=== PATIENT | male | born 1985 | race African-American/Black ===

== ENCOUNTER 2018-02-07 14:09 | Inpatient (IN) | payer MEDICAID ==
[~2018-02-07] VITALS: Ht 177.8 cm; Wt 70.3 kg
[2018-02-07] MEDS ORDERED: AMYL1CAP56 PO (14:28)
[2018-02-07] MEDS ORDERED: QUET300T2 PO (14:28)
[2018-02-07] MEDS ORDERED: INSU3INS6 SQ (14:28)
[2018-02-07] MEDS ORDERED: HUMALOG SQ (14:28)
[2018-02-07] MEDS ORDERED: ZOLP10TA2 PO (14:28)
[2018-02-07] MEDS ORDERED: MORPHINE SULFATE 2 MG/1 ML DISP.SYRIN IV ONE ×2 (14:45→17:15)
[2018-02-07] MEDS ORDERED: ONDANSETRON 4 MG/2 ML VIAL IV ONE ×2 (14:45→17:15)
[2018-02-07] MEDS ORDERED: IV NORMAL SALINE 1000 ML BAG IV ONE ×2 (14:45→17:15)
[2018-02-07 15:36] LABS: *BLOOD, URINE Trace-intact (NEGATIVE); *CLARITY,URINE SLIGHTLY CLOUDY (CLEAR); *COLOR,URINE DARK YELLOW (YELLOW); *KETONES,URINE TRACE (NEGATIVE); *UROBILINOGEN,URINE 0.2 E.U./dl (NORMAL); LEUKOCYTE ESTERASE ,URINE NEGATIVE (NEGATIVE); NITRITE, URINE NEGATIVE (NEGATIVE); UGLUCOSE TRACE (NEGATIVE)
[2018-02-07 15:38] LABS: *BILIRUBIN,URIN 1+ (NEGATIVE)
[2018-02-07 15:51] LABS: BACTERIA,URINE NONE SEEN /HPF (NONE SEEN); CALCIUM OXALATE CRYSTALS,UR FEW /HPF (NONE SEEN); SQUAMOUS EPITHELIAL CELL,UR FEW /HPF (NONE SEEN); WBC,URINE 0-3 /HPF (0-3)
--- NOTE | 2018-02-07 16:10 | NUR ---
Md placed triple lumen centeral line in Rt Jugular vein, pt tolorated well.
[2018-02-07] MEDS ORDERED: MORPHINE SULFATE 4 MG/1 ML DISP.SYRIN ONE ×2 (16:16→17:22)
[2018-02-07] MEDS ORDERED: ONDANSETRON 4 MG/2 ML VIAL ONE ×2 (16:16→17:22)
[2018-02-07 16:17] LABS: BASOPHILS # (AUTO) 0.1 K/uL (0.0-8.0); EOSINOPHILS # (AUTO) 0.1 K/uL (0.0-0.7); EOSINOPHILS % (AUTO) 1.8 % (0.0-7.0); HEMATOCRIT 27.6 % (36.7-47.1); HEMOGLOBIN 9.2 g/dL (12.5-16.3); LYMPHOCYTES # (AUTO) 1.8 K/uL (20.0-40.0); LYMPHOCYTES % (AUTO) 31.7 % (20.5-51.5); MEAN CORPUSCULAR HEMOGLOBIN 25.8 uug (23.8-33.4); MEAN CORPUSCULAR HGB CONC 33 g/dL (32.5-36.3); MEAN CORPUSCULAR VOLUME 77.7 fL (73.0-96.2); MONOCYTES # (AUTO) 0.5 K/uL (2.0-10.0); MONOCYTES % (AUTO) 7.9 % (0.0-11.0); NEUTROPHILS # (AUTO) 3.3 K/uL (1.8-8.9); NEUTROPHILS % (AUTO) 57.6 % (38.5-71.5); PLATELET COUNT (AUTO) 589 K/uL (152-348); RED BLOOD CELL COUNT(AUTO) 3.56 MIL/uL (4.06-5.63); WHITE BLOOD COUNT (AUTO) 5.8 K/uL (3.6-10.2)
[2018-02-07 16:40] LABS: ALANINE AMINOTRANSFERASE 21 U/L (16-63); ALKALINE PHOSPHATASE 109 U/L (50-136); ASPARTATE AMINOTRANSFERASE 16 U/L (15-37); BILIRUBIN,DIRECT 0.1 mg/dL (0.0-0.2); BILIRUBIN,TOTAL 0.3 mg/dL (0.2-1.0); CARBON DIOXIDE 29 mmol/L (21-32); CHLORIDE 101 mmol/L (98-107); CREATININE 0.6 mg/dL (0.6-1.3); GLUCOSE 114 mg/dL (74-106); LIPASE 44 U/L (73-393); POTASSIUM 3.8 mmol/L (3.5-5.1); UREA NITROGEN, BLOOD 8 mg/dL (7-18)
--- NOTE | 2018-02-07 16:59 | NUR ---
OSIEL DALTON spoke to Dr Corea for admit. Pt [place] be admitted to M/S.
[2018-02-07] MEDS ORDERED: VANCOMYCIN IV 1 G in PREMIXED 0 EACH IV SCH (17:15)
[2018-02-07] MEDS ORDERED: MORPHINE SULFATE 2 MG/1 ML DISP.SYRIN IV PRN (17:15)
[2018-02-07] MEDS ORDERED: DEXTROSE 50% 50 ML DISP.SYRIN IV PRN (17:15)
--- NOTE | 2018-02-07 17:40 | NUR ---
patient transferred to [facility]-surg from ER. patient is in stable condition. central line is intact and flushing well. patient denies any pain or discomfort at this time.
[2018-02-07 17:49] VITALS: BP 143/95
[2018-02-07] MEDS: BLOOD SUGAR DIAGNOSTIC 1 EACH STRIP VI SCH (18:30)
--- NOTE | 2018-02-07 18:33 | NUR ---
PHARMACY CLINICAL NOTES ( VANCOMYCIN DOSING) S: Patient is a 32-year-old male with history of diabetes, chronic pancreatitis status post cholecystectomy, splenectomy and partial pancreatectomy reported to emergency department complaining of increasing abdominal pain and recurrent vomiting for the last couple days. MD ordered Vancomycin for suspected infection O: BUN/SCR 8/0.6; WBC 5.8; T MAX 98; DOSING WT 155LBS; PT has allergy to (zosyn, PCN) A/P: Will dose Vancomycin as 1 gm q7h ; predicted peak of 36 and trough 18, will order trough prior to 4th dose tomorrow ~ 1600 and will adjust the dose if necessary.
[2018-02-07] MEDS: IV NS 1000 ML 1,000 ML IV PRN (19:01)
[2018-02-07] MEDS: INSULIN REGULAR, HUMAN 300 UNIT/3 ML VIAL SQ PRN (19:07)
--- NOTE | 2018-02-07 19:20 | NUR ---
RECEIVED PT AWAKE, ALERT, AND ORIENTEDX4.PT SHOWS NO SIGNS OF ACUTE DISTRESS. IV INTACT AND PATENT. VITAL SIGNS WNL. SAFETY AND COMFORT PROVIDED. WILL CONTINUE TO MONITOR. PT REQUESTING FOR DILAUDID MEDICATION BECAUSE HE CLAIMS MORPHINE DOESN'T HELPED HIM AND ASKING FOR PAIN MEDICATION. WILL CONTINUE TO MONITOR.
[2018-02-07] MEDS: VANCOMYCIN IV 1 G in PREMIXED 0 EACH IV SCH (19:52)
[2018-02-07 20:00] VITALS: BP 127/80
--- NOTE | 2018-02-07 20:38 | NUR ---
CALLED DR TOOL SHAPER SETUP OPERATOR FOR THE PATIENT REQUESTING IF HE CAN GET DILAUDID AND SLEEPING MEDICATION. DR. IDALMIS SALAZAR CALLED BACK AND ORDERED TO HAVE THE SAME PAIN MEDICATION WHICH IS MORPHINE AND NO SLEEPING MEDICATION BECAUSE PT IS ON NPO. PT STABLE. WILL CONTINUE TO MONITOR.
[2018-02-07] MEDS: MORPHINE SULFATE 4 MG/1 ML DISP.SYRIN IV PRN (21:48)
[2018-02-08] MEDS: BLOOD SUGAR DIAGNOSTIC 1 EACH STRIP VI SCH ×5 (00:21→23:25)
[2018-02-08] MEDS: INSULIN REGULAR, HUMAN 300 UNIT/3 ML VIAL SQ PRN ×3 (00:24→23:30)
--- NOTE | 2018-02-08 01:00 | NUR ---
ORDERED SOCIAL SERVICE FOR THE CODE OF THE PT TO HAVE POLST . PT STABLE. WILL CONTINUE TO MONITOR.
[2018-02-08] MEDS: VANCOMYCIN IV 1 G in PREMIXED 0 EACH IV SCH ×2 (01:57→08:29)
[2018-02-08] MEDS: MORPHINE SULFATE 4 MG/1 ML DISP.SYRIN IV PRN ×5 (01:58→21:55)
[2018-02-08 04:00] VITALS: BP 123/82
[2018-02-08] MEDS: IV NS 1000 ML 1,000 ML IV PRN ×2 (06:31→18:17)
--- NOTE | 2018-02-08 06:41 | NUR ---
PT SLEPT THROUGHOUT THE SHIFT. PT SHOWS NO SIGNS OF DISTRESS. PRESCRIBED MEDICATION GIVEN AND PT TOLERATED IT WELL. CALL LIGHT WITHIN REACH. IV INTACT.PAIN MANAGEMENT DONE. PAIN MEDICATION GIVEN AND PT TOLERATED IT WELL. SAFETY AND COMFORT PROVIDED. WILL ENDORSE TO DAYSHIFT NURSE FOR CONTINUITY OF CARE.
[2018-02-08 06:42] LABS: BASOPHILS # (AUTO) 0.1 K/uL (0.0-8.0); BASOPHILS % (AUTO) 1.5 % (0.0-2.0); EOSINOPHILS # (AUTO) 0.3 K/uL (0.0-0.7); EOSINOPHILS % (AUTO) 6.3 % (0.0-7.0); HEMATOCRIT 24.7 % (36.7-47.1); HEMOGLOBIN 8.3 g/dL (12.5-16.3); LYMPHOCYTES % (AUTO) 40.6 % (20.5-51.5); MEAN CORPUSCULAR HEMOGLOBIN 26.5 uug (23.8-33.4); MEAN CORPUSCULAR HGB CONC 34 g/dL (32.5-36.3); MEAN CORPUSCULAR VOLUME 78.7 fL (73.0-96.2); MONOCYTES # (AUTO) 0.5 K/uL (2.0-10.0); MONOCYTES % (AUTO) 9.7 % (0.0-11.0); NEUTROPHILS # (AUTO) 2.1 K/uL (1.8-8.9); NEUTROPHILS % (AUTO) 41.9 % (38.5-71.5); PLATELET COUNT (AUTO) 595 K/uL (152-348); RED BLOOD CELL COUNT(AUTO) 3.13 MIL/uL (4.06-5.63); WHITE BLOOD COUNT (AUTO) 4.9 K/uL (3.6-10.2)
[2018-02-08 06:55] LABS: THYROID STIMULATING HORMONE 5.594 mIU/mL (0.358-3.740)
[2018-02-08 06:56] LABS: ALANINE AMINOTRANSFERASE 18 U/L (16-63); ALKALINE PHOSPHATASE 97 U/L (50-136); ASPARTATE AMINOTRANSFERASE 17 U/L (15-37); BILIRUBIN,TOTAL 0.2 mg/dL (0.2-1.0); CARBON DIOXIDE 28 mmol/L (21-32); CHLORIDE 104 mmol/L (98-107); CHOLESTEROL 82 mg/dL (<200); CREATININE 0.6 mg/dL (0.6-1.3); GLUCOSE 220 mg/dL (74-106); HDL CHOLESTEROL 29 mg/dL (40-60); MAGNESIUM 1.8 mg/dL (1.8-2.4); PHOSPHOROUS 3.1 mg/dL (2.5-4.9); POTASSIUM 3.8 mmol/L (3.5-5.1); TOTAL PROTEIN, SERUM 6.7 g/dL (6.4-8.2); TRIGLYCERIDES 37 MG/DL (30-150); UREA NITROGEN, BLOOD 6 mg/dL (7-18)
[2018-02-08 07:02] LABS: LIPASE 41 U/L (73-393)
[2018-02-08] MEDS: PANTOPRAZOLE SODIUM 40 MG VIAL IV SCH (08:27)
--- NOTE | 2018-02-08 10:01 | NUR ---
UPON ASSESSMENT, PATIENT DENIES ANY SUICIDAL IDEATION AT THIS TIME. APN CONSULT HAS BEEN PLACED. WILL CONTINUE TO MONITOR CLOSELY.
[2018-02-08 12:00] VITALS: BP 116/64
[2018-02-08] MEDS ORDERED: BARIUM SULFATE 450 ML ORAL.SUSP ONE (13:26)
[2018-02-08] MEDS ORDERED: IOHEXOL 300MG/ML 100 ML INFUS..BTL ONE (15:35)
[2018-02-08] MEDS ORDERED: NORMAL SALINE FLUSH 10 ML DISP.SYRIN ONE (15:35)
[2018-02-08] MEDS ORDERED: IV NORMAL SALINE 250 ML IV ONE (15:35)
[2018-02-08] MEDS ORDERED: SWABABLE VALVE TRANSFER SET EA MC ONE (15:35)
[2018-02-08 16:00] VITALS: BP 121/70
--- NOTE | 2018-02-08 18:44 | NUR ---
patient is resting in bed and was resting through out most of the day. patient continue to complain of abdominal pain, but morphine pain management seems to be effective. patient went down to do CT of the abdomen today and signed a consent. Went down with patient and did not notice any distress. patient denies any distress while being transferred and doing procedure. patient is able to verbalize needs. patient remains in stable condition and denies any suicidal ideation at this time. will continue to follow up with social media specialist for POLST status. will endorse to compliance program manager nurse the continuity of care.
[2018-02-08 19:00] VITALS: BP 127/75
--- NOTE | 2018-02-08 19:15 | NUR ---
Received pt sitting up in bed, awake. Alert and oriented x4. Discussed and reviewed plan of care with pt, pt cooperative but is guarded and passive. Pt has pain level of 7/10 on pain scale. Pt denies SI. IV intact, clean and dry. Aware of follow up consult with socially responsible investment adviser for POLST status. Safety precautions and comfort measures implemented. Call light within reach. Will continue to monitor and carry out all orders.
[2018-02-08] MEDS: ONDANSETRON 4 MG/2 ML VIAL IV PRN (21:38)
--- NOTE | 2018-02-08 22:59 | NUR ---
Upon initial rounds, pt stated he was nauseous and had an episode of vomiting. Emesis was present, 50 mL with clear color with no other particles. Zofran was given prior to emesis episode. Will continue to monitor.
--- NOTE | 2018-02-09 | NUR ---
Pt stated that he feels better. No nausea or emesis noted. Comfort measures maintained. Will continue to monitor.
[2018-02-09] MEDS: MORPHINE SULFATE 4 MG/1 ML DISP.SYRIN IV PRN ×2 (03:02→08:33)
[2018-02-09 04:00] VITALS: BP 106/66
[2018-02-09] MEDS: BLOOD SUGAR DIAGNOSTIC 1 EACH STRIP VI SCH ×5 (05:02→20:10)
[2018-02-09] MEDS: IV NS 1000 ML 1,000 ML IV PRN ×2 (05:03→15:15)
--- NOTE | 2018-02-09 05:20 | NUR ---
BG check in AM, results of 132. Pt refused insulin. Will endorse to day shift nurse and continue to monitor.
[2018-02-09 06:47] LABS: ALANINE AMINOTRANSFERASE 19 U/L (16-63); ALKALINE PHOSPHATASE 102 U/L (50-136); ASPARTATE AMINOTRANSFERASE 27 U/L (15-37); BASOPHILS # (AUTO) 0.1 K/uL (0.0-8.0); BASOPHILS % (AUTO) 1.3 % (0.0-2.0); BILIRUBIN,TOTAL 0.4 mg/dL (0.2-1.0); CARBON DIOXIDE 28 mmol/L (21-32); CHLORIDE 105 mmol/L (98-107); CREATININE 0.6 mg/dL (0.6-1.3); EOSINOPHILS # (AUTO) 0.3 K/uL (0.0-0.7); EOSINOPHILS % (AUTO) 6.4 % (0.0-7.0); GLUCOSE 140 mg/dL (74-106); HEMATOCRIT 25.7 % (36.7-47.1); HEMOGLOBIN 8.7 g/dL (12.5-16.3); LIPASE 32 U/L (73-393); LYMPHOCYTES # (AUTO) 1.9 K/uL (20.0-40.0); LYMPHOCYTES % (AUTO) 42.5 % (20.5-51.5); MAGNESIUM 1.8 mg/dL (1.8-2.4); MEAN CORPUSCULAR HEMOGLOBIN 26.5 uug (23.8-33.4); MEAN CORPUSCULAR HGB CONC 34 g/dL (32.5-36.3); MEAN CORPUSCULAR VOLUME 78.8 fL (73.0-96.2); MONOCYTES # (AUTO) 0.4 K/uL (2.0-10.0); MONOCYTES % (AUTO) 9.8 % (0.0-11.0); NEUTROPHILS # (AUTO) 1.8 K/uL (1.8-8.9); PHOSPHOROUS 3.1 mg/dL (2.5-4.9); PLATELET COUNT (AUTO) 637 K/uL (152-348); POTASSIUM 3.5 mmol/L (3.5-5.1); RED BLOOD CELL COUNT(AUTO) 3.27 MIL/uL (4.06-5.63); TOTAL PROTEIN, SERUM 6.4 g/dL (6.4-8.2); WHITE BLOOD COUNT (AUTO) 4.5 K/uL (3.6-10.2)
[2018-02-09 06:56] LABS: UREA NITROGEN, BLOOD 5 mg/dL (7-18)
--- NOTE | 2018-02-09 07:40 | NUR ---
Received patient asleep in low back rest. Alert and oriented x4. Not in any form of distress. Pt denies SI. Noted with right IJ cath with dressing, intact to IVF infusing well. Noted for follow up consult with social work coordinator for POLST status. Maintained on NPO for CT of the abdomen. Noted complains of abdominal pain, prn pain medications given. Bed in low position, side rails up x2 for safety, call light within reach. Ensured safety and comfort. Will continue to monitor.
[2018-02-09] MEDS: PANTOPRAZOLE SODIUM 40 MG VIAL IV SCH ×2 (08:33→20:05)
[2018-02-09] MEDS ORDERED: PANTOPRAZOLE SODIUM 40 MG VIAL IV SCH (11:00)
[2018-02-09 11:10] VITALS: BP 111/67
[2018-02-09] MEDS: SUCRALFATE 1 G TABLET PO SCH ×3 (11:26→20:05)
[2018-02-09] MEDS: ONDANSETRON 4 MG/2 ML VIAL IV PRN (11:27)
[2018-02-09] MEDS: INSULIN REGULAR, HUMAN 300 UNIT/3 ML VIAL SQ PRN ×3 (11:41→20:11)
[2018-02-09] MEDS: HYDROMORPHONE 1 MG/1 ML DISP.SYRIN IV PRN ×4 (12:14→21:22)
--- NOTE | 2018-02-09 13:00 | NUR ---
Per chart review, CT of abdomen was done and resulted yesterday. Verified with Bill Silva, no need to redo the scan and that patient can eat regular diet - ordered.
--- NOTE | 2018-02-09 13:30 | NUR ---
Security Flex Utility Officer, tablet tester patient should be on low fat diet because of pancreatitis diagnosis, updated patient's diet.
--- NOTE | 2018-02-09 14:00 | NUR ---
Patient repeatedly asking for snacks and requesting to get chips and soda from vending machine, patient informed that while he is admitted in the hospital he should follow the diet that is recommended for him by the doctor and dietitian.
[2018-02-09 15:04] VITALS: BP 123/76
--- NOTE | 2018-02-09 18:15 | NUR ---
Patient awake in low back rest. Alert and oriented x4. Not in any form of distress. Pt denies SI. Noted with right IJ cath with dressing, intact to IVF infusing well. Noted complains of abdominal pain, prn pain medications given. Bed in low position, side rails up x2 for safety, call light within reach. Ensured safety and comfort. Noted per Bill Silva BENCH ASSEMBLER OPERATOR, discharge planning tomorrow.
--- NOTE | 2018-02-09 19:20 | NUR ---
Received patient lying in bed. AAOX4. In no acute distress. Denies any pain or SOB at this time. No nausea or vomiting reported. Right IJ site intact and patent. IVF infusing. Needs assessed and attended to. Safety measure initiated and call mckinney within reach.
[2018-02-09 20:00] VITALS: BP 142/83
[2018-02-10] MEDS: HYDROMORPHONE 1 MG/1 ML DISP.SYRIN IV PRN ×4 (00:22→09:36)
[2018-02-10] MEDS: IV NS 1000 ML 1,000 ML IV PRN (01:24)
[2018-02-10 05:02] VITALS: BP 113/59
--- NOTE | 2018-02-10 06:08 | NUR ---
AAOX4. In no acute distress. Denies SOB. No nausea or vomiting. Dilaudid PRN per order given for complain of abdominal pain and effective. Right IJ site intact and patent. IVF infusing. Needs assessed and attended to. Safety measure maintained and call mckinney within reach.
[2018-02-10] MEDS: SUCRALFATE 1 G TABLET PO SCH (06:45)
[2018-02-10] MEDS: BLOOD SUGAR DIAGNOSTIC 1 EACH STRIP VI SCH (06:46)
--- NOTE | 2018-02-10 07:15 | NUR ---
received report from manufacturing supervisor 2nd shift nurse, patient in bed awake, no distress noted at this time, bed in low position, side rails up x2.
[2018-02-10] MEDS: INSULIN REGULAR, HUMAN 300 UNIT/3 ML VIAL SQ PRN (07:57)
[2018-02-10] MEDS: PANTOPRAZOLE SODIUM 40 MG VIAL IV SCH (08:01)
--- NOTE | 2018-02-10 09:45 | NUR ---
After meeting I was notified that pt was not on the unit. IV pole and medication were found in the elevator. Security was called and directed to call the police department because pt has a right jugular triple lumen picc line. senior procurement manager notified acute care fire services plumber. Addendum: 02/10/18 at 1045 by ANIA SAMS RN wrong time documented. 1000 is the time of notification.
--- NOTE | 2018-02-10 10:00 | NUR ---
Upon rounding by FINANCIAL CONSULTANT reported that patient is not in the room. Later an IV pole with patients information on antibiotics was seen in elevator by housekeeping and brought to nursing station. Practical Nurse Clinical Coordinator notified.
[2018-02-10] MEDS ORDERED: INSULIN REGULAR, HUMAN 300 UNIT/3 ML VIAL SQ ONE (10:15)
--- NOTE | 2018-02-10 10:18 | NUR ---
Informed by charge nurse that the pt was no were to be found. Per classroom monitor: IV pole was by the elevator and that security had been called. Informed Drafter Cartographic regarding the patient leaving AMA. Informed Acute Care Exhaust Machine Operator [place] about the patient leaving AMA with a triple jugular line. Informed security investigator to call police and report the patient leaving with a jugular line and ID band. Charge nurse is aware of current situation
[2018-02-10] MEDS ORDERED: PANTOPRAZOLE SODIUM 40 MG TABLET.DR PO SCH (17:00)
== END 2018-02-10 09:50 | disposition left against medical advice (07) | DRG 241 ==
LOC: ER 14:09 → MED 17:29
PROVIDERS: ATTEND Nurse Practitioner Acute Care
PROC: 05HM33Z Insertion of Infusion Device into Right Internal Jugular Vein, Percutaneous Approach (ICD-10-PCS; principal; 2018-02-07)
DX: K29.70 Gastritis, unspecified, without bleeding (principal); K85.90 Acute pancreatitis without necrosis or infection, unspecified; E44.0 Moderate protein-calorie malnutrition; E11.65 Type 2 diabetes mellitus with hyperglycemia; I80.8 Phlebitis and thrombophlebitis of other sites; E03.9 Hypothyroidism, unspecified; T80.1XXD Vascular complications following infusion, transfusion and therapeutic injection, subsequent encounter; N20.0 Calculus of kidney; D63.8 Anemia in other chronic diseases classified elsewhere; F31.9 Bipolar disorder, unspecified; Z90.81 Acquired absence of spleen; Z79.4 Long term (current) use of insulin; Z90.411 Acquired partial absence of pancreas; Z90.49 Acquired absence of other specified parts of digestive tract; Z79.899 Other long term (current) drug therapy; Z68.22 Body mass index [BMI] 22.0-22.9, adult; K86.1 Other chronic pancreatitis
CPT/HCPCS: 36415; 36556; 71045; 83690; 83735; 84100; 84443; 85025; 85730; A4663; C1751; C9113; G0378; J1170; J1815; J2270; J2405; J3370; J3490; J7030; J7050; Q9951; Q9967

== ENCOUNTER 2018-03-27 08:57 | Emergency (ER) | payer SELFPAY ==
[~2018-03-27] VITALS: Ht 177.8 cm; Wt 77.1 kg
[~2018-03-27 08:57] MED LIST: AMYL1CAP56 PO; HUMALOG SQ; INSU3INS6 SQ; QUET300T2 PO; ZOLP10TA2 PO
--- NOTE | 2018-03-27 09:20 | NUR ---
DR Enriquez at the bedside for MSE.
[2018-03-27] MEDS ORDERED: IV NORMAL SALINE 1000 ML BAG IV ONE (09:30)
[2018-03-27] MEDS ORDERED: MORPHINE SULFATE 2 MG/1 ML DISP.SYRIN IV ONE (09:30)
[2018-03-27] MEDS ORDERED: PANTOPRAZOLE SODIUM 40 MG VIAL IV ONE (09:30)
[2018-03-27] MEDS ORDERED: ONDANSETRON 4 MG/2 ML VIAL IV ONE (09:30)
[2018-03-27 09:34] LABS: *BILIRUBIN,URIN NEGATIVE (NEGATIVE); *BLOOD, URINE 2+ (NEGATIVE); *COLOR,URINE YELLOW (YELLOW); *KETONES,URINE TRACE (NEGATIVE); *UROBILINOGEN,URINE 0.2 E.U./dl (NORMAL); LEUKOCYTE ESTERASE ,URINE NEGATIVE (NEGATIVE); NITRITE, URINE NEGATIVE (NEGATIVE); PH,URINE 5.5 (5.0-8.0); UGLUCOSE 3+ (NEGATIVE)
[2018-03-27 09:36] LABS: *CLARITY,URINE SLIGHTLY HAZY (CLEAR)
[2018-03-27] MEDS ORDERED: ONDANSETRON 4 MG/2 ML VIAL ONE (09:38)
[2018-03-27] MEDS ORDERED: MORPHINE SULFATE 4 MG/1 ML DISP.SYRIN ONE (09:38)
[2018-03-27] MEDS ORDERED: PANTOPRAZOLE SODIUM 40 MG VIAL ONE (09:39)
[2018-03-27 09:41] LABS: BASOPHILS % (AUTO) 0.7 % (0.0-2.0); EOSINOPHILS # (AUTO) 0.1 K/uL (0.0-0.7); EOSINOPHILS % (AUTO) 1.6 % (0.0-7.0); HEMATOCRIT 30.2 % (36.7-47.1); LYMPHOCYTES # (AUTO) 1.8 K/uL (20.0-40.0); LYMPHOCYTES % (AUTO) 27.8 % (20.5-51.5); MEAN CORPUSCULAR HGB CONC 33 g/dL (32.5-36.3); MEAN CORPUSCULAR VOLUME 81.5 fL (73.0-96.2); MONOCYTES # (AUTO) 0.6 K/uL (2.0-10.0); MONOCYTES % (AUTO) 9.3 % (0.0-11.0); NEUTROPHILS # (AUTO) 3.9 K/uL (1.8-8.9); NEUTROPHILS % (AUTO) 60.6 % (38.5-71.5); PLATELET COUNT (AUTO) 544 K/uL (152-348); WHITE BLOOD COUNT (AUTO) 6.4 K/uL (3.6-10.2)
[2018-03-27 09:50] LABS: BACTERIA,URINE NONE SEEN /HPF (NONE SEEN); MUCUS,URINE FEW /LPF (0-FEW); RBC,URINE 20-50 /HPF (0-3); SQUAMOUS EPITHELIAL CELL,UR FEW /HPF (NONE SEEN); WBC,URINE 0-3 /HPF (0-3)
[2018-03-27 09:50] LABS: CARBON DIOXIDE 28 mmol/L (21-32); CHLORIDE 98 mmol/L (98-107); CREATININE 0.8 mg/dL (0.6-1.3); LIPASE 39 U/L (73-393); POTASSIUM 4.2 mmol/L (3.5-5.1); UREA NITROGEN, BLOOD 14 mg/dL (7-18)
[2018-03-27 09:52] LABS: GLUCOSE 403 mg/dL (74-106)
[2018-03-27 10:02] LABS: ALANINE AMINOTRANSFERASE 16 U/L (16-63); ALKALINE PHOSPHATASE 103 U/L (50-136); ASPARTATE AMINOTRANSFERASE 12 U/L (15-37); BILIRUBIN,DIRECT 0.1 mg/dL (0.0-0.2); BILIRUBIN,TOTAL 0.3 mg/dL (0.2-1.0); TOTAL PROTEIN, SERUM 8.3 g/dL (6.4-8.2)
[2018-03-27] MEDS ORDERED: INSULIN REGULAR, HUMAN 300 UNIT/3 ML VIAL ONE (10:04)
[2018-03-27] MEDS ORDERED: INSULIN REGULAR, HUMAN 300 UNIT/3 ML VIAL IV ONE (10:15)
[2018-03-27] MEDS ORDERED: diphenhydrAMINE 50 MG/1 ML VIAL ONE ×2 (10:41→11:08)
[2018-03-27] MEDS ORDERED: diphenhydrAMINE 50 MG/1 ML VIAL IV ONE ×2 (10:45→11:15)
--- NOTE | 2018-03-27 11:01 | NUR ---
Pt resting in bed, watching Tv, NAD noted.
--- NOTE | 2018-03-27 11:25 | NUR ---
Pt able to tolorate PO intake.
[2018-03-27 11:59] LABS: CARBON DIOXIDE 29 mmol/L (21-32); CHLORIDE 104 mmol/L (98-107); CREATININE 0.6 mg/dL (0.6-1.3); GLUCOSE 123 mg/dL (74-106); POTASSIUM 3.9 mmol/L (3.5-5.1); UREA NITROGEN, BLOOD 14 mg/dL (7-18)
--- NOTE | 2018-03-27 13:04 | NUR ---
IV removed. Catheter intact and site benign. Pressure and 4x4 gauze applied to site. No bleeding noted.
[2018-03-27 13:05] VITALS: BP 120/72
--- NOTE | 2018-03-27 13:05 | NUR ---
Patient discharged to home in stable conditon. Written and verbal after care instructions given. Patient verbalizes understanding of instructions.
== END 2018-03-27 13:06 | disposition home or self-care (01) ==
LOC: ER 08:57
DX: E11.65 Type 2 diabetes mellitus with hyperglycemia (principal); R11.11 Vomiting without nausea; N20.0 Calculus of kidney; K59.00 Constipation, unspecified; Z90.49 Acquired absence of other specified parts of digestive tract; Z90.81 Acquired absence of spleen; Z90.411 Acquired partial absence of pancreas; Z79.4 Long term (current) use of insulin; Z79.899 Other long term (current) drug therapy; Z88.8 Allergy status to other drugs, medicaments and biological substances
CPT/HCPCS: 36415; 71045; 74176; 80048 ×2; 80076; 81001; 82009; 82962; 83605 ×2; 83690; 84484; 85025; 85730; 87040 ×2; 87086; 93005; 96361; 96374; 96375; 99284; C9113; J1200 ×2; J1815; J2270; J2405; 70030-TC; A4663; J7030

== ENCOUNTER 2018-04-01 12:03 | Emergency (ER) | payer SELFPAY ==
[~2018-04-01] VITALS: Ht 177.8 cm; Wt 79.4 kg
--- NOTE | 2018-04-01 12:38 | NUR ---
Patient discharged to home in stable conditon. Written and verbal after care instructions given to patient. Patient verbalizes understanding of instructions.
== END 2018-04-01 12:39 | disposition home or self-care (01) ==
LOC: ER 12:05
DX: E10.65 Type 1 diabetes mellitus with hyperglycemia (principal); R10.13 Epigastric pain; Z90.49 Acquired absence of other specified parts of digestive tract; Z88.8 Allergy status to other drugs, medicaments and biological substances; Z79.4 Long term (current) use of insulin; Z79.899 Other long term (current) drug therapy
CPT/HCPCS: A4663